=== PATIENT | male | born 1970 | race African-American/Black ===

== ENCOUNTER 2017-09-09 00:53 | Emergency (ER) | payer SELFPAY ==
[~2017-09-09] VITALS: Ht 175.3 cm; Wt 91.0 kg
[2017-09-09 01:01] VITALS: BP 153/99
== END 2017-09-09 04:00 | disposition left against medical advice (07) ==
LOC: ER 00:53
DX: Z53.21 Procedure and treatment not carried out due to patient leaving prior to being seen by health care provider (principal)